=== PATIENT | male | born 1930 | race Caucasian/White ===

== ENCOUNTER 2017-01-01 10:59 | Emergency (ER) | payer MEDICARE ==
[~2017-01-01] VITALS: Ht 172.7 cm; Wt 81.6 kg
[~2017-01-01 10:59] MED LIST: AMLO10TA2 PO; CARV12.5 PO; FERR-26 PO; FURO40TA4 PO; GLIM4TAB2 PO; LEVO25TA4 PO; LINA5TAB4 PO; METF500T4 PO; PANT40TA5 PO; PROAIR HFA8.5 GM INH; SIMV40TA3 PO; SPIR25TA3 PO; TORS20TA2 PO
--- NOTE | 2017-01-01 11:19 | PHYS DOC ---
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 Patient was walking into a building tripped over his feet and fell face first. Patient sustained abrasions to his forehead and nose along with both hands and complained of knee pain. Patient states he had no loss of consciousness. Patient also complains of neck and upper back pain. Patient has no other complaints. Review of Systems Review of Systems GEN: Denies fevers, chills, sweats HEENT: Neck and upper back pain CV: Denies chest pain RESP: Denies shortness of air, cough GI: Denies n/v/d NEURO: Denies confusion, dizziness MSK: Left knee pain Current Medications Current Medications Current Medications Medications (Trade) Dose Ordered Sig/Nika Start Time Stop Time Status Last Admin Dose Admin Diphtheria/ Tetanus/Acell Pertussis (Boostrix) 0.5 ml ONCE ONCE 01/01/17 13:30 01/01/17 13:31 DC 01/01/17 14:00 0.5 ML Lidocaine/Sodium Bicarbonate (Buffered Lidocaine 1%) 20 ml 1X ONCE 01/01/17 14:00 01/01/17 14:01 DC 01/01/17 13:59 20 ML Allergies Allergies Allergies Coded Allergies Type Severity Reaction Last Updated Verified SOFIA Inhibitors Allergy Severe Angioedema 03/21/15 Yes lisinopril Allergy Severe angioedema 03/21/15 Yes aspirin Allergy Intermediate GI bleed 03/21/15 Yes metoprolol Allergy Intermediate bradycardia 03/21/15 Yes Physical Exam Physical Exam GEN.: No apparent distress. Alert and oriented. HEENT: H abrasion to the left forehead and nose NECK: Supple, tenderness palpation midline of the C-spine and upper thoracic spine. LUNGS: CTAB. HEART: RRR, 3/6 TRACY. Peripheral pulses intact ABDOMEN: Soft, nontender. Positive bowel sounds. EXTREMITIES: Without any cyanosis. Tender to palpation to the left knee with no swelling minimal pain with range of motion NEUROLOGIC: Normal speech, normal tone PSYCHIATRIC: Normal affect, normal mood. SKIN: No ulcerations Current Patient Data Vital Signs Vital Signs Date Time Temp Pulse Resp B/P (MAP) Pulse Ox O2 Delivery O2 Flow Rate FiO2 01/01/17 11:08 98.7 99 18 154/73 (100) 99 Room Air 98.7 EKG EKG [] Radiology/Procedures Radiology/Procedures X-ray left knee shows no obvious fracture CT the head/C-spine/T-spine shows no acute abnormalities Indication: Scalp laceration Procedure: The patient was placed in the appropriate position and anesthesia around the LAC was 5 ML was 1% lidocaine. The area was then cleaned with normal saline and Betadine. The laceration was and closed with 5-0 nylon 3 interrupted sutures were placed. The wound area was then dressed with Xeroform and gauze and Curlex. Total repaired wound length: 3 cm. Other Items: None The patient tolerated the procedure tolerated. Complications: None. [] Course & Med Decision Making Course & Med Decision Making Pertinent Labs and Imaging studies reviewed. (See chart for details) ED course: Patient was seen and examined emergency room CT scan of the head/T-spine/C-spine /x-ray of the L knee were ordered 1410: Scalp laceration was repaired 1430: Patient is stable for discharge explained x-ray results with the patient and CT results, family at bedside agree with plan. MDM: After reviewing the chart, CC/HPI/PMH, physical exam, [lab results], [ radiological results], I do not believe the patient sustained a significant trauma warranting further workup and/or admission at this time. Patient's laceration to his forehead/scalp was sutured and patient is stable for discharge. Patient has family at bedside to take him home. Additional verbal discharge instructions were provided to the patient and that if symptoms get worse or any new symptoms arise that are worrisome to the patient he is to return to the emergency room immediately [] Dragon Disclaimer Dragon Disclaimer This electronic medical record was generated, in whole or in part, using a voice recognition dictation system. Departure Departure Impression: Primary Impression: Facial laceration Additional Impressions: Closed head injury Fall Facial contusion Disposition: 01 HOME, SELF-CARE Condition: IMPROVED Referrals: ENEIDA RAMIREZ MD (PCP) Patient Instructions: Concussion and Brain Injury, [id number], Laceration Care, Adult Additional Instructions: Please follow-up with your family physician for suture removal in 5-7 days and return if symptoms increase and watch for signs of infection Problem Qualifiers SISSY MCGEE DO Jan 01, 2017 11:19
--- NOTE | 2017-01-01 11:47 | RAD ---
Exam performed: 3 views left knee. History: Patient fell today, pain and laceration to the anterior left knee. Date of service: 01/01/17. Comparison: None available 3 views left knee findings: There is severe narrowing of the medial tibiofemoral and patellofemoral joint compartment with diffuse osteophytic spurring. There is no acute fracture or dislocation. No soft tissue swelling or joint effusion seen. Diffuse atheromatous vascular calcification is seen. Impression: Significant degenerative arthrosis involving the left knee. No acute abnormality seen.
--- NOTE | 2017-01-01 12:19 | RAD ---
CT scan of the head without contrast 01/01/2017 Clinical History: Patient tripped and fell on face. Technique: Unenhanced, contiguous, 5 mm axial sections were obtained through the head. One or more of the following individualized dose reduction techniques were utilized for this study: 1. Automated exposure control. 2. Adjustment of the mA and/or kV according to patient size. 3. Use of iterative reconstruction technique. Findings: No previous studies are available for comparison. There is generalized parenchymal atrophy. Small scattered areas of decreased attenuation are seen within the periventricular and subcortical white matter of both cerebral hemispheres consistent with areas of small vessel ischemic disease. No acute parenchymal abnormality is seen. No extra-axial fluid collection is noted. No skull fracture is seen. Soft tissue swelling is seen involving the left frontal scalp. Impression: No acute intracranial abnormality is seen. CT scan of the facial bones without contrast 01/01/2017 Clinical history: The patient tripped and fell landing on face. Technique: Unenhanced, contiguous, 0.625 mm axial sections were obtained through the facial bones and orbits. 3 mm reconstructed sagittal, axial and coronal images were obtained. One or more of the following individualized dose reduction techniques were utilized for this study: 1. Automated exposure control. 2. Adjustment of the mA and/or kV according to patient size. 3. Use of iterative reconstruction technique. Findings: No facial bone fracture seen. Both orbits are intact. Soft tissue swelling is seen involving the left frontal scalp. The paranasal sinuses are essentially clear. No air-fluid bolus seen. Impression: No facial bone fracture is seen.
--- NOTE | 2017-01-01 12:22 | RAD ---
CT scan of the thoracic spine without contrast 01/01/2017 Clinical history: Midback pain post fall. Technique: Unenhanced, contiguous, 0.625 mm axial sections were obtained through the thoracic spine. 3 mm reconstructed axial, sagittal and coronal images were obtained. One or more of the following individualized dose reduction techniques were utilized for this study: 1. Automated exposure control. 2. Adjustment of the mA and/or kV according to patient size. 3. Use of iterative reconstruction technique. Findings: Sagittal and coronal reconstructed images demonstrate mild to moderate S-shaped curvature of the thoracolumbar spine. 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 No fracture or subluxation of the thoracic vertebrae is seen. Degenerative changes are seen involving the thoracic disc spaces consisting of vertebral endplate sclerosis and degenerative changes involving the facet joints. Impression: No fracture or subluxation of the thoracic vertebra is seen.
--- NOTE | 2017-01-01 12:25 | RAD ---
CT scan of the cervical spine without contrast 01/01/2017 Clinical history: Neck pain post fall. Technique: Unenhanced, contiguous, 0.625 mm axial sections were obtained through the cervical spine. 3 mm reconstructed sagittal, axial, and and coronal images were obtained. One or more of the following individualized dose reduction techniques were utilized for this study: 1. Automated exposure control. 2. Adjustment of the mA and/or kV according to patient size. 3. Use of iterative reconstruction technique. Findings: Sagittal and coronal reconstructed images demonstrate mild lateral curvature of the cervical spine convex to the left. Degenerative changes consisting of disc space narrowing, vertebral endplate sclerosis and mild anterior and posterior vertebral body osteophyte formation are seen throughout the cervical disc spaces. No fracture or subluxation of the cervical vertebrae is seen. Degenerative changes uncovertebral and facet joints throughout the cervical disc spaces. Atherosclerotic calcification is seen in the region of the carotid bifurcations. Impression: No fracture or subluxation of the cervical vertebra is seen.
[2017-01-01] MEDS ORDERED: DIPHTH,PERTUSS(ACELL),TET TOX 0.5 ML DISP.SYRIN. VAX IM ONE (13:30)
[2017-01-01] MEDS ORDERED: LIDOCAINE 1% / SOD BICARB 8.4% 20 ML VIAL. IJ ONE (14:00)
[2017-01-01 14:07] VITALS: BP 157/74
== END 2017-01-01 14:40 | disposition home or self-care (01) ==
LOC: ER 10:59
DX: S01.01XA Laceration without foreign body of scalp, initial encounter (principal); S00.83XA Contusion of other part of head, initial encounter; M54.2 Cervicalgia; M25.562 Pain in left knee; E11.9 Type 2 diabetes mellitus without complications; K21.9 Gastro-esophageal reflux disease without esophagitis; E78.00 Pure hypercholesterolemia, unspecified; I11.9 Hypertensive heart disease without heart failure; E03.9 Hypothyroidism, unspecified; Z88.8 Allergy status to other drugs, medicaments and biological substances; Z88.6 Allergy status to analgesic agent; W01.0XXA Fall on same level from slipping, tripping and stumbling without subsequent striking against object, initial encounter; Y93.01 Activity, walking, marching and hiking; Y92.89 Other specified places as the place of occurrence of the external cause; Y99.8 Other external cause status
CPT/HCPCS: 12002; 70450; 70486; 72125; 72128; 73562; 90471; 90715; 99284-25